=== PATIENT | female | born 1940 | race Caucasian/White ===

== ENCOUNTER 2019-10-23 16:00 | Outpatient (CLI) | payer MEDICARE, SELFPAY ==
[2019-10-23 16:35] LABS: Basophils % 1.1 %; Eosinophils # 0.2 10^3/uL (0.0-0.8); Hematocrit 39.7 % (37.0-47.0); Hemoglobin 12.4 g/dL (11.5-15.3); Lymphocytes # 1.2 10^3/uL (0.8-4.8); Lymphocytes % 30.5 %; Mean Corpuscular HGB Conc 31.2 g/dL (30.0-36.0); Mean Corpuscular Volume 92.8 fL (81-99); Mean Platelet Volume 12.4 fL (7.4-10.4); Monocytes # 0.4 10^3/uL (0.2-0.9); Monocytes % 10.3 %; Neutrophils # 1.98 10^3/uL (1.8-7.7); Neutrophils % 52.6 %; Nucleated Red Blood Cells % 0 %; Platelet Count 145 10^3/cmm (130-400); Red Blood Count 4.28 10^6/uL (4.1-5.3); Red Cell Distribution Width 14.2 % (12.1-15.1); White Blood Count 3.8 10^3/uL (4.0-10.0)
[2019-10-23 17:09] LABS: Alanine Aminotransferase 8 U/L (0-33); Alkaline Phosphatase 60 IU/L (35-105); Anion Gap 11.3 (5-19); Aspartate Amino Transferase 17 U/L (0-32); Blood Urea Nitrogen 28 mg/dL (8-23); Calcium 9.2 mg/dL (8.5-10.5); Carbon Dioxide 24 mmol/L (22-29); Chloride 108 mmol/L (98-107); Chol HDL Ratio 2.63 mg/dL (0.0-4.40); Cholesterol 197 mg/dL (0-200); Globulin 2.6 g/dL (1.3-4.6); Glucose 94 mg/dL (65-115); HDL Cholesterol 75 mg/dL (60-100); LDL Cholesterol Calculated 107 mg/dL (50-129); LDL HDL Ratio 1.43 RATIO (0.00-3.22); Osmolality Calculated 285 mOsm/kg (285-295); Potassium 4.3 mmol/L (3.5-5.1); Sodium 139 mmol/L (136-145); Thyroid Stimulating Hormone 3.45 uIU/mL (0.27-4.20); Total Bilirubin 0.3 mg/dL (0.15-1.2); Total Protein 6.6 g/dL (6.6-8.7); Triglycerides 74 mg/dL (0-150)
[2019-10-23 19:08] LABS: Estmated Average Glucose 111; Hemoglobin A1C 5.5 % (4.0-6.0)
== END 2019-10-23 16:01 | disposition home or self-care (01) ==
LOC: LAB 16:17
PROVIDERS: Visit Provider Nurse Practitioner Family
DX: D64.9 Anemia, unspecified (principal); I10 Essential (primary) hypertension; E78.00 Pure hypercholesterolemia, unspecified
CPT/HCPCS: 80053; 80061; 83036; 84443; 85025

== ENCOUNTER 2021-09-13 10:51 | Emergency (ER) | payer MEDICARE, SELFPAY ==
[2021-09-13 11:02] VITALS: BP 132/71; PULSE 85; RESP 14; TEMP 36.2; O2SAT 96; BMI 23.1
--- NOTE | 2021-09-13 11:13 | W.ED.GENADLT ---
HPI - General Adult General: Chief complaint: GI Bleed Stated complaint: RECTAL BLEEDING Time Seen by Provider: 09/13/21 11:00 History of Present Illness: Patient is an 80-year-old female with history of CAD, hypertension, Alzheimer's dementia presenting to the emergency room with concerns of rectal bleeding generalized weakness x 4 day. Per patient's family, patient has had 1 episode of large blood. Per family, the patient has been increasingly more fatigued and last 4 days has had multiple episodes of emesis at home. Family denies any anticoagulation. EMS was called and patient was brought to the emergency room. In route, patient has normal blood pressure. Patient at baseline is AAO x1 but able to answer most questions. Denies nausea/vomiting, abdominal pain, fever/chill, chest pain, shortness of breath, dysuria/hematuria/polyuria, diarrhea/melena/hematochezia. Onset:4 days ago Duration:4 days Location:home Severity:moderate Associated symptoms: Reports nausea and vomiting; Deny chest pain, dyspnea, rash or palpitations Review of Systems Const: Reports: other (+generalized weakness); Denies: fever(s) or chills Eyes: Denies: change in vision ENMT: Denies: mouth pain Card: Denies: chest pain or palpitations Resp: Denies: dyspnea or non-productive cough GI: Reports: nausea, vomiting and other (+bloody stools); Denies: abdominal pain or diarrhea : Denies: dysuria Musc: Denies: extremity pain Skin/Breast: Denies: rash or new lesions Neuro: Denies: weakness in extremities Psych: Reports: other (Normal mood) Nish/Lymph: Denies: easy bruising PFSH ED PFSH: Medical History CAD (coronary artery disease) Essential hypertension Left ventricular hypertrophy Family History Other CAD (coronary artery disease) Cancer Dementia Hypertension Stroke Social History Smoking and tobacco status: never smoked Physical Exam Const: COMMON NORMALS: alert HENMT: COMMON NORMALS: atraumatic HEAD & SCALP: atraumatic MOUTH: moist mucous membranes not abnormal Eye: COMMON NORMALS: EOMs intact bilaterally and conjunctivae normal CONJUNCTIVA: Yes conjunctivae normal Neck/C-Spine: COMMON NORMALS: full ROM and supple Resp: COMMON NORMALS: normal respiratory effort and clear to auscultation bilaterally AUSCULTATION: clear to auscultation bilaterally Cardio: COMMON NORMALS: regular rate RATE: regular rate GI: COMMON NORMALS: Soft to palpation PALPATION: Yes Soft to palpation OTHER: +moderate LLQ TTP. NO guarding rebound, guarding, rigidity. No CVA tenderness to percussion. Neg Manuel/Neg McBurney's point tenderness, no suprabupic tenderness to palpation. + Rectal exam supervised by Carmen nurse tech: Bright red blood per rectum, nonthrombosed external hemorrhoid noted at the 12 o'clock position, no visible signs of anal fissure Extremity: COMMON NORMALS: full ROM Neuro: SENSORIUM/ORIENTATION: Yes alert MOTOR EXAM: No Abnormal motor strength present and Other motor observations present (no focal motor deficits) Psych: COMMON NORMALS: speech normal SPEECH: Yes normal speech MOOD & AFFECT: Yes euthymic mood Course Vital Signs: Vital signs: Vital Signs Temperature 97.1 F L 09/13/21 11:02 Pulse Rate 84 09/13/21 16:47 Respiratory Rate 14 09/13/21 11:02 Blood Pressure 153/76 09/13/21 16:47 Pulse Oximetry 97 09/13/21 16:47 [facility] - General Adult Medical Decision Making 80-year-old female with history of CAD, hypertension presenting to the emergency room with concern generalized weakness x 4 days and rectal bleeding x 1 episode. At baseline patient is AAO x1 able to answer most of my questions. Patient has focal LLQ tenderness palpation without guarding rebound tenderness. Hemodynamically stable. Patient is noted to have white count 11.8. Hemoglobin of 15.6. Patient noted to have new SORAYA on CKD with creatinine of 3.4. BUN of 52 which may indicate GI bleeding. To schedule small bowel obstruction. Patient is noted to have bulky fibroid uterus. Given age, I discussed with Dr. Ellison who thinks that this is likely gynecological cancer. At the present time, we suspect that patient may have adhesions or cancer causing small bowel obstruction. Dr. Ellison recommended transfer to an outside hospital where there is naphthalene operator helper onc covergae. Case was discussed with Dr. Martins who agreed with the transfer to [facility] for management of SBO in the setting possible uterine cancer. Disposition: Transfer to outside hospital Lab Data : 09/13/21 12:08 09/13/21 12:08 Radiology Impressions Abdomen/Pelvis CT 09/13/21 12:49 IMPRESSION: 1. Evidence of small bowel obstruction with fluid distended small bowel loops and air-fluid levels. Evidence of transition to normal caliber small bowel loops in the RIGHT lower quadrant with some tethering in this area suspicious for adhesions. No pneumatosis or free air. 2. Terminal ileum and colon are decompressed. 3. Bulky fibroid uterus with Calcified uterine fibroids the largest measuring 4.6 x 3.9 CM. 4. Small moderate RIGHT and tiny LEFT pleural effusions. Notified Sarita Fall MD at 09/13/2021 2:04 PM. KUB X-Ray 09/13/21 14:03 IMPRESSION: Nasogastric tube placement as above. Distal small bowel obstruction. Laboratory Results WBC 11.8 10^3/uL (4.0-10.0) H 09/13/21 12:08 RBC 5.31 10^6/uL (4.1-5.3) H 09/13/21 12:08 Hgb 15.6 g/dL (11.5-15.3) H 09/13/21 12:08 Hct 44.6 % (37.0-47.0) 09/13/21 12:08 MCV 84.0 fl (81-99) 09/13/21 12:08 MCH 29.4 pg (28.0-34.0) 09/13/21 12:08 MCHC 35.0 g/dL (30.0-36.0) 09/13/21 12:08 RDW 14.1 % (12.1-15.1) 09/13/21 12:08 Plt Count 123 10^3/cmm (130-400) L 09/13/21 12:08 MPV 12.2 fL (7.4-10.4) H 09/13/21 12:08 Neut % (Auto) 84.7 % 09/13/21 12:08 Lymph % (Auto) 8.3 % 09/13/21 12:08 [place] % (Auto) 6.2 % 09/13/21 12:08 Eos % (Auto) 0.0 % 09/13/21 12:08 Baso % (Auto) 0.3 % 09/13/21 12:08 Neut # (Auto) 10.00 10^3/uL (1.8-7.7) H 09/13/21 12:08 Lymph # (Auto) 1.0 10^3/uL (0.8-4.8) 09/13/21 12:08 [place] # (Auto) 0.7 10^3/uL (0.2-0.9) 09/13/21 12:08 Eos # (Auto) 0.0 10^3/uL (0.0-0.8) 09/13/21 12:08 Baso # (Auto) 0.0 10^3/uL (0.0-0.1) 09/13/21 12:08 Nucleated RBC % (auto) 0 % 09/13/21 12:08 Nucleated RBCs # 0.0 /100WBC 09/13/21 12:08 PT 14.80 SECONDS (12.1-14.9) 09/13/21 12:17 INR 1.13 (0.8-1.2) 09/13/21 12:17 APTT 25.5 SECONDS (23.9-36.7) 09/13/21 12:17 Sodium 135 mmol/L (136-145) L 09/13/21 12:08 Potassium 4.2 mmol/L (3.5-5.1) 09/13/21 12:08 Chloride 101 mmol/L (98-107) 09/13/21 12:08 Carbon Dioxide 18 mmol/L (22-29) L 09/13/21 12:08 Anion Gap 20.2 (5-19) H 09/13/21 12:08 BUN 52 mg/dL (8-23) H 09/13/21 12:08 Creatinine 3.4 mg/dL (0.5-0.9) H 09/13/21 12:08 GFR Calculation Not Reportable 09/13/21 12:08 Glucose 99 mg/dL (65-115) 09/13/21 12:08 Calculated Osmolality 294 mOsm/kg (285-295) 09/13/21 12:08 Calcium 9.2 mg/dL (8.5-10.5) 09/13/21 12:08 Total Bilirubin 0.6 mg/dL (0.15-1.2) 09/13/21 12:08 AST 22 U/L (0-32) 09/13/21 12:08 ALT < 5 U/L (0-33) 09/13/21 12:08 Alkaline Phosphatase 49 IU/L (35-105) 09/13/21 12:08 Total Protein 6.2 g/dL (6.6-8.7) L 09/13/21 12:08 Albumin 3.1 g/dL (3.5-5.2) L 09/13/21 12:08 Globulin 3.1 g/dL (1.3-4.6) 09/13/21 12:08 Lipase 9 U/L (13-60) L 09/13/21 12:08 Imaging Data Other Imaging: Radiologist's impression: [facility] [address] [address] Scan Report Signed Patient: Alexsandra Juarez Unit #: [id number] : 1940 Age/Sex: 80 / F ADM Date: 09/13/21 Loc: ER Room/Bed: Attending Dr: Ordering Provider/Ordering MD: Sarita Fall MD Date of Service: 09/13/21 Procedure(s): CT abdomen pelvis con [id number] Accession Number(s): [id number] Report Number: [id number] WS: [id number] CT ABDOMEN PELVIS TECHNIQUE: Noncontrast CT of the abdomen and pelvis with coronal and sagittal reformatted images. CLINICAL INFORMATION: LLQ abd pain COMPARISON: None. DLP: 1060.[address] [facility] at [facility] one of these dose optimization techniques: automated exposure control; mA and/or kV adjustment per patient size (includes targeted exams where dose is matched to clinical indication); or iterative reconstruction. FINDINGS: Small moderate RIGHT and tiny LEFT pleural effusions. Compressive atelectasis in the lung bases. Tiny pericardial effusion. Coronary calcification. Bulky fibroid uterus with Calcified uterine fibroids the largest measuring 4.6 x 3.9 CM. Rectal constipation with rectal distention. Colon is decompressed. Evidence of small bowel obstruction with fluid distended loops of small bowel with air-fluid levels. Small bowel loops measure up to 3.0 CM. Fluid distended stomach with air-fluid level. Suggestion of transition point in the RIGHT lower pelvis with some induration in the mesentery suspicious for adhesions in this area. No free air or pneumatosis. Terminal ileum is decompressed. Noncontrast liver is normal. Noncontrast spleen is normal. Mild fluid distention of the gallbladder. Fatty atrophy of the pancreas. Splenic artery calcification. Adrenal glands are normal. No hydronephrosis. Bilateral renal cortical atrophy. LEFT renal cyst. CT/CT abdomen pelvis wo con [id number] IMPRESSION: ? 1.? Evidence of small bowel obstruction with fluid distended small bowel loops and air-fluid levels. Evidence of transition to normal caliber small bowel loops in the RIGHT lower quadrant with some tethering in this area suspicious for adhesions. No pneumatosis or free air. 2.? Terminal ileum and colon are decompressed. 3.? Bulky fibroid uterus with Calcified uterine fibroids the largest measuring 4.6 x 3.9 CM. 4.? Small moderate RIGHT and tiny LEFT pleural effusions. ? Notified Sarita Fall MD at 09/13/2021 2:04 PM. ? ? Dictated By: Cecil Damico MD Signed By: Cecil Damico MD Signed Date/Time: 09/13/21 1407 DD/ 1344 Discharge Plan Discharge Patient Disposition: Admitted As Inpatient Clinical Impression: Rectal bleed, Generalized weakness, Acute kidney injury superimposed on chronic kidney disease, SBO (small bowel obstruction), Fibroid, uterine Condition: Stable Coding Level of Care Code ED Community Development Officer for Chg Fwd Exam Comprehensive
--- NOTE | 2021-09-13 11:29 | PC.PHAR ---
pt states her son takes care of her medications-pts son reilly states the pt takes the medications entered states he is unsure of the names of which ones she takes in the am and hs-states the pt had her am meds states he knows for sure the pt took the amlodipine and namenda this am-
[2021-09-13 12:18] LABS: Basophils % 0.3 %; Hematocrit 44.6 % (37.0-47.0); Hemoglobin 15.6 g/dL (11.5-15.3); Lymphocytes % 8.3 %; Mean Corpuscular Hemoglobin 29.4 pg (28.0-34.0); Mean Platelet Volume 12.2 fL (7.4-10.4); Monocytes # 0.7 10^3/uL (0.2-0.9); Monocytes % 6.2 %; Neutrophils % 84.7 %; Nucleated Red Blood Cells % 0 %; Platelet Count 123 10^3/cmm (130-400); Red Blood Count 5.31 10^6/uL (4.1-5.3); Red Cell Distribution Width 14.1 % (12.1-15.1); White Blood Count 11.8 10^3/uL (4.0-10.0)
[2021-09-13 12:32] LABS: Alanine Aminotransferase < 5 U/L (0-33); Albumin Level 3.1 g/dL (3.5-5.2); Alkaline Phosphatase 49 IU/L (35-105); Blood Urea Nitrogen 52 mg/dL (8-23); Calcium 9.2 mg/dL (8.5-10.5); Carbon Dioxide 18 mmol/L (22-29); Chloride 101 mmol/L (98-107); Globulin 3.1 g/dL (1.3-4.6); Glucose 99 mg/dL (65-115); Lipase 9 U/L (13-60); Osmolality Calculated 294 mOsm/kg (285-295); Sodium 135 mmol/L (136-145); Total Bilirubin 0.6 mg/dL (0.15-1.2); Total Protein 6.2 g/dL (6.6-8.7)
[2021-09-13 12:37] LABS: Anion Gap 20.2 (5-19); Aspartate Amino Transferase 22 U/L (0-32); Potassium 4.2 mmol/L (3.5-5.1)
[2021-09-13 12:37] LABS: INR 1.13 (0.8-1.2); Partial Thromboplastin Time 25.5 SECONDS (23.9-36.7)
--- NOTE | 2021-09-13 12:49 | CT_ITS ---
WS: [id number] CT ABDOMEN PELVIS TECHNIQUE: Noncontrast CT of the abdomen and pelvis with coronal and sagittal reformatted images. CLINICAL INFORMATION: LLQ abd pain COMPARISON: None. DLP: 1060.[address] scans at [facility] use at least one of these dose optimization techniques: automated e xposure control; mA and/or kV adjustment per patient size (includes targeted exams where dose is matc hed to clinical indication); or iterative reconstruction. FINDINGS: Small moderate RIGHT and tiny LEFT pleural effusions. Compressive atelectasis in the lung bases. Tiny pericardial effusion. Coronary calcification. Bulky fibroid uterus with Calcified uterine fibroids t he largest measuring 4.6 x 3.9 CM. Rectal constipation with rectal distention. Colon is decompressed. Evidence of small bowel obstruction with fluid distended loops of small bowel with air-fluid levels. Small bowel loops measure up to 3.0 CM. Fluid distended stomach with air-fluid level. Suggestion of transition point in the RIGHT lower pelvis with some induration in the mesentery suspicious for adhes ions in this area. No free air or pneumatosis. Terminal ileum is decompressed. Noncontrast liver is normal. Noncontrast spleen is normal. Mild fluid distention of the gallbladder. Fatty atrophy of the pancreas. Splenic artery calcification. Adrenal glands are normal. No hydronephr osis. Bilateral renal cortical atrophy. LEFT renal cyst. CT/CT abdomen pelvis wo con [id number] IMPRESSION: 1. Evidence of small bowel obstruction with fluid distended small bowel loops and air-fluid levels. Evidence of transition to normal caliber small bowel loop s in the RIGHT lower quadrant with some tethering in this area suspicious for a dhesions. No pneumatosis or free air. 2. Terminal ileum and colon are decompressed. 3. Bulky fibroid uterus with Calcified uterine fibroids the largest measuring 4.6 x 3.9 CM. 4. Small moderate RIGHT and tiny LEFT pleural effusions. Notified Sarita Fall MD at 09/13/2021 2:04 PM.
--- NOTE | 2021-09-13 14:03 | XR_ITS ---
WS: [id number] XR KUB portable [id number] REASON FOR EXAM: ng tube placement FINDINGS: Nasogastric tube placement consistent with junction of the fundus and body of the stomach. Again are noted the multiple dilated small bowel loops consistent with distal small bowel obstruction as demonstrated on the previous CT scan of today. No free air or retroperitoneal air. Moderate to large right pleural effusion with right lower lung atelectasis. Smaller left pleural effu shayna. XR/XR KUB portable [id number] IMPRESSION: Nasogastric tube placement as above. Distal small bowel obstruction.
[2021-09-13 15:21] VITALS: BP 117/69; PULSE 82; O2SAT 99
[2021-09-13] MEDS: sodium chloride 0.9% 500 ML 999 ML IV (15:36)
[2021-09-13] MEDS: ondansetron 2 mg/ML SDV 2 mL 4 MG IVP (15:38)
[2021-09-13 16:47] VITALS: BP 153/76; PULSE 84; O2SAT 97
--- NOTE | 2021-09-13 20:16 | PC.NURSE ---
Patient pulled out her NG tube. Dr. Fall said not to place another one.
== END 2021-09-13 21:25 | disposition admitted as inpatient to this hospital (09) ==
PROVIDERS: Emergency Provider Emergency Medicine
DX: K62.5 Hemorrhage of anus and rectum (principal); R53.1 Weakness; I12.9 Hypertensive chronic kidney disease with stage 1 through stage 4 chronic kidney disease, or unspecified chronic kidney disease; N18.9 Chronic kidney disease, unspecified; N17.9 Acute kidney failure, unspecified; K56.609 Unspecified intestinal obstruction, unspecified as to partial versus complete obstruction; D25.9 Leiomyoma of uterus, unspecified; I25.10 Atherosclerotic heart disease of native coronary artery without angina pectoris
CPT/HCPCS: 36415; 74018; 74176; 80053; 83690; 85025; 85610; 85730; 96374; 99285; J2405; J7040

== ENCOUNTER → 2022-05-16 15:32 | Outpatient (BNVA) | payer MEDICARE, SELFPAY | PROVIDERS: Visit Provider Obstetrics & Gynecology | DX: D25.9 Leiomyoma of uterus, unspecified (principal) | CPT/HCPCS: 76830; 76856 ==

== ENCOUNTER → 2022-11-21 11:10 | Outpatient (BNVA) | payer MEDICARE, SELFPAY | PROVIDERS: Visit Provider Obstetrics & Gynecology | DX: D25.9 Leiomyoma of uterus, unspecified (principal) | CPT/HCPCS: 76856 ==

== ENCOUNTER 2023-03-26 12:30 | Emergency (ER) | payer MEDICARE, SELFPAY ==
[2023-03-26 12:32] VITALS: BP 174/82; PULSE 72; RESP 14; TEMP 36.7; O2SAT 97; BMI 23.1
[2023-03-26 12:54] VITALS: BP 158/72; PULSE 64; RESP 14; TEMP 36.5; O2SAT 95
--- NOTE | 2023-03-26 12:55 | ED_ITS ---
HPI - Fall 2 General: Chief Complaint: Fall Stated Complaint: Fever,/ Fall Time Seen by Provider: 03/26/23 12:55 History of Present Illness: 82-year-old female presents to the emerg ency department via POV accompanied by her son. Patient is a poor historian as she has a history of dementia. The son states the patient fell twice today once while going to the bathroom and then the second time she fell she hit the left side of her forehead on a stationary object. There is no report of loss of consciousness, patient states that she does feel dizzy. As reported by the patient's son she has no history of falling previously. She does have a hematoma to the left supraorbital region. She does not appear to take anticoagulation. Associated symptoms-after fall: Denies chest pain, confusion or headache(s) Review of Systems 2 Card: Denies: chest pain, irregular heart rhythm or edema Skin/Breast: Reports: other (Bruise to left eyelid) Neuro: Reports: dizziness; Denies: headache(s), confusion, difficulty communicating thoughts or seizure- like activity PFSH ED 2 PFSH: Medical History CAD (coronary artery disease) Essential hypertension Left ventricular hypertrophy Family History Unknown Cancer Denies a family hx of Breast, Ovarian, Uterine, Colon Thyroid and Pancreatic cancers. Other CAD (coronary artery disease) Dementia Hypertension Stroke Social History Smoking and tobacco/nicotine status: never used tobacco/nicotine Physical Exam 2 Narrative: EXAM NARRATIVE: Constitutional: the patient appears well nourished and with normal development. Vital signs reviewed as documented. HENMT: Normocephalic, atraumatic. External ears normal appearance without drainage. Nose without drainage, normal appearance. Mucus membranes moist. Neck is supple, No jugular venous distension, trachea is midline, no appreciable carotid bruits. No lymphadenopathy. No meningeal signs. Flexion, extension and lateral rotation is without pain. No crepitus, no palpable step-offs, normal alignment, Eyes: Pupils are equal, round, reactive to light and accommodation. No scleral icterus. Extra-ocular movement are intact. Thorax is symmetrical and with equal rise and fall with respirations. Resp: Lungs are clear to auscultation. No wheezes, rales, crackles or ronchi at present. Cardio: Regular rate and rhythm. Positive S1, S2. No appreciable murmurs, rubs or gallops. GI: Abdominal exam reveals normal bowel sounds to all quadrants. No organomegaly. No obvious palpable masses noted. No hepatomegally appreciated. Soft, non-tender to palpation. Extremity: Extremities are non-edematous and both femoral and pedal pulses are 2+ and equal bilaterally. Moves all extremities well, sensation in all extremities. Neuro: Alert and oriented x4, person, place, time and situation. Cranial nerves II through XII are grossly intact, there is no focal neurological deficits that I can appreciate at present. Motor strength in the upper and lower extremities are equal and bilateral 5/5. Psych: Cooperative, calm, normal thought process, appropriate judgment. Skin: No lesions, rashes. Bruising to the left eyebrow area. Back: Symmetrical, no obvious deformity, No CVA tenderness, normal alignment, no palpable step-offs, no crepitus, no obvious deformity. Course 2 Vital Signs: Vital signs: Vital Signs Temperature 97.7 F 03/26/23 14:48 Pulse Rate 64 03/26/23 14:48 Respiratory Rate 14 03/26/23 14:48 Blood Pressure 158/72 03/26/23 14:48 Pulse Oximetry 95 03/26/23 14:48 Oxygen Delivery Me thod Room Air 03/26/23 12:54 MDM - Fall Medical Decision Making 82-year-old female with a history of dementia with accidental falls x 2 today we will obtain laboratory evaluation to include a CBC, CMP PT/INR PTT EKG cardiac enzymes as well as a CT scan of her head and cervical spine given her age and mechanism of the fall as well as the impact with the stationary object and resultant dizziness. We will obtain a urinalysis and orthostatic blood pressure evaluation to evaluate for dehydration. Medical Records I reviewed the patient's medical records. Lab Data I reviewed the patient's lab results. 03/26/23 13:15 03/26/23 13:15 Radiology Impressions Cervical Spine CT 03/26/23 12:59 IMPRESSION: No acute findings. Head CT 03/26/23 12:59 IMPRESSION: No acute intracranial abnormality. Laboratory Results WBC 5.66 10^3/uL (3.29-11.43) 03/26/23 13:15 RBC 4.78 10^6/uL (3.85-5.65) 03/26/23 13:15 Hgb 14.10 g/dL (11.27-16.99) 03/26/23 13:15 Hct 43.6 % (36-47) 03/26/23 13:15 MCV 91.2 fl (85-98) 03/26/23 13:15 MCH 29.5 pg (27-33) 03/26/23 13:15 MCHC 32.3 g/dL (30-55) 03/26/23 13:15 RDW 14.2 % (12.1-15.1) 03/26/23 13:15 Plt Count 148 10^3/cmm (157-399) L 03/26/23 13:15 MPV 11.9 fL (7.4-10.4) H 03/26/23 13:15 Neut % (Auto) 68.9 % 03/26/23 13:15 Lymph % (Auto) 20.7 % 03/26/23 13:15 [place] % (Auto) 6.9 % 03/26/23 13:15 Eos % (Auto) 2.1 % 03/26/23 13:15 Baso % (Auto) 0.9 % 03/26/23 13:15 Neut # (Auto) 3.90 10^3/uL (1.8-7.7) 03/26/23 13:15 Lymph # (Auto) 1.2 10^3/uL (0.8-4.8) 03/26/23 13:15 [place] # (Auto) 0.4 10^3/uL (0.2-0.9) 03/26/23 13:15 Eos # (Auto) 0.1 10^3/uL (0.0-0.8) 03/26/23 13:15 Baso # (Auto) 0.1 10^3/uL (0.0-0.1) 03/26/23 13:15 Nucleated RBC % (auto) 0 % 03/26/23 13:15 Nucleated RBCs # 0.0 /100WBC 03/26/23 13:15 Sodium 139 mmol/L (136-145) 03/26/23 13:15 Potassium 4.6 mmol/L (3.5-5.1) 03/26/23 13:15 Chloride 106 mmol/L (98-107) 03/26/23 13:15 Carbon Dioxide 24 mmol/L (22-29) 03/26/23 13:15 Anion Gap 13.6 (5-19) 03/26/23 13:15 BUN 30 mg/dL (8-23) H 03/26/23 13:15 Creatinine 1.4 mg/dL (0.5-0.9) H 03/26/23 13:15 GFR Calculation Not Reportable 03/26/23 13:15 Glucose 96 mg/dL (65-115) 03/26/23 13:15 POC Glucose 79 mg/dL (70-110) 03/26/23 13:38 Calculated Osmolality 294 mOsm/kg (285-295) 03/26/23 13:15 Calcium 10.3 mg/dL (8.5-10.5) 03/26/23 13:15 Total Bilirubin 0.4 mg/dL (0.15-1.2) 03/26/23 13:15 AST 20 U/L (0-32) 03/26/23 13:15 ALT 7 U/L (0-33) 03/26/23 13:15 Alkaline Phosphatase 63 U/L (35-105) 03/26/23 13:15 Troponin T Baseline 16 ng/L (0-10) H 03/26/23 13:15 Total Protein 7.6 g/dL (6.6-8.7) 03/26/23 13:15 Albumin 4.3 g/dL (3.5-5.2) 03/26/23 13:15 Globulin 3.3 g/dL (1.3-4.6) 03/26/23 13:15 Urine Color Straw (Yellow) 03/26/23 13:28 Urine Appearance Clear (CLEAR) 03/26/23 13:28 Urine pH 7 (5-7) 03/26/23 13:28 Ur Specific [place] 1.010 (1.005-1.030) 03/26/23 13:28 Urine Protein Neg (Negative) 03/26/23 13:28 Urine Glucose (UA) Norm (Normal) 03/26/23 13:28 Urine Ketones Negative (Negative) 03/26/23 13:28 Urine Blood Neg (Negative) 03/26/23 13:28 Urine Nitrate Negative (Negative) 03/26/23 13:28 Urine Bilirubin Neg (Negative) 03/26/23 13:28 Urine Urobilinogen Norm mg/dL (Negative) 03/26/23 13:28 Ur Leukocyte Esterase Negative (Negative) 03/26/23 13:28 All radiology interpretation(s) finalized by discharge EKG Data EKG 1: Interpretation: Twelve-lead EKG obtained at 1317 reviewed at 1320 demonstrates sinus rhythm, ventricular rate of 64 bpm, WV interval 176, QRS duration 88, QT 424, QTc [address] elevation or depression at present to demonstrate acute ischemia or infarction. Discharge Plan Discharge Patient Disposition: Home Clinical Impression: Accidental fall, Contusion of face, Dementia Condition: Stable Prescriptions: No Action memantine [Namenda] 10 mg tablet 10 mg PO BID isosorbide mononitrate 60 mg tablet extended release 24 hr 60 mg PO DAILY lovastatin 20 mg tablet 20 mg PO DAILY donepezil 10 mg tablet 10 mg PO DAILY tolterodine 4 mg capsule,extended release 24hr 4 mg PO DAILY olmesartan 20 mg tablet 20 mg PO DAILY aspirin [Adult Low Dose Aspirin] 81 mg tablet,delayed release (DR/EC) 81 mg PO BEDTIME cholecalciferol (vitamin D3) 125 mcg (5,000 unit) capsule 125 mcg PO BEDTIME amlodipine 5 mg tablet 5 mg PO DAILY mirtazapine 7.5 mg Tablet 7.5 mg PO BEDTIME Discharge Orders: Discharge ED (Routine); Ordered 03/26/23 Ordered By: Domenic Perez Referrals: Mile Gaxiola FNP [Primary Care Provider] - Discharge Diet: Advance as tolerated Discharge Activity: Resume usual activity Patient Instructions: Opioid Safety, Pain Management Activity Restrictions/Additional Instructions: Activity Restrictions/Additional Instructions: Thank you for choosing [facility] for your healthcare needs today. Please realize that you were seen in the Emergency Department and that we are providing you with an emergency medical screening exam and this may not be a complete and all inclusive of all the testing and or medical work-up that you may need to determine your ailment or severity of your illness. It is very important that you follow-up as instructed with your Primary care provider or Specialist for additional evaluation and to discuss your medical treatment plan. You may return to the Emergency Department should you have concerns or if your condition changes or worsens in any way. Coding Level of Care Code ED Rigging Up Worker for Trina Conley
[2023-03-26 12:59] VITALS: BP 154/80; BP 157/82; BP 165/83; PULSE 65; PULSE 66; PULSE 72
--- NOTE | 2023-03-26 12:59 | CTR_ITS ---
PROCEDURE INFORMATION: Exam: CT Head Without Contrast Exam date and time: 03/26/2023 1:57 PM Age: 82 years old Clinical indication: Injury or trauma; Fall; Blunt trauma (contusions or hematomas); Additional info: Fall/trauma TECHNIQUE: Imaging protocol: Computed tomography of the head without contrast. Radiation optimization: All CT scans at this facility use at least one of these dose optimization techniques: automated exposure control; mA and/or kV adjustment per patient size (includes targeted exams where dose is matched to clinical indication); or iterative reconstruction. COMPARISON: CT cervical spin wo con* [id number] 03/26/2023 1:57 PM RADIATION DOSE METRICS: Total DLP (mGy-cm): 981.4 FINDINGS: Brain: No hemorrhage. Chronic white matter and senescent changes. Cerebral ventricles: No ventriculomegaly. Paranasal sinuses: Visualized sinuses are grossly clear. Mastoid air cells: No mastoid effusion. Bones/joints: No acute findings. Hyperostosis frontalis. Soft tissues: No acute findings. CT/CT head wo con* [id number] IMPRESSION: No acute intracranial abnormality.
--- NOTE | 2023-03-26 12:59 | CTR_ITS ---
PROCEDURE INFORMATION: Exam: CT Cervical Spine Without Contrast Exam date and time: 03/26/2023 1:57 PM Age: 82 years old Clinical indication: Injury or trauma; Fall; Blunt trauma; Additional info: Trauma/fall TECHNIQUE: Imaging protocol: Computed tomography of the cervical spine without contrast. Radiation optimization: All CT scans at this facility use at least one of these dose optimization techniques: automated exposure control; mA and/or kV adjustment per patient size (includes targeted exams where dose is matched to clinical indication); or iterative reconstruction. COMPARISON: CT head wo con* [id number] 03/26/2023 1:57 PM RADIATION DOSE METRICS: Total DLP (mGy-cm): 591.2 FINDINGS: Bones/joints: No fracture or malalignment. Mild multilevel degenerative changes. No severe canal stenosis. Soft tissues: No acute findings. CT/CT cervical spin wo con* [id number] IMPRESSION: No acute findings.
--- NOTE | 2023-03-26 13:17 | ECG_ITS ---
[facility] Test Date: 2023-03-26 Pat Name: Alexsandra Juarez Department: Room: Gender: Female Rn Hematology: : 1940 Requested By: Domenic Perez Order Number: [id number] Gregory MD: Laury Puckett M.D. Measurements Intervals [place] Rate: 64 P: 110 UT: 176 QRS: 121 QRSD: 88 T: 123 QT: 424 QTc: 439 Interpretive Statements SINUS RHYTHM ARM LEADS REVERSED [INVERTED P AND QRS IN I] No previous ECG available for comparison Electronically Signed On 03-26-2023 21:36:46 SENIOR SUPPORT ANALYST by Laury Puckett M.D. [id number]
[2023-03-26 13:28] LABS: Basophils # 0.1 10^3/uL (0.0-0.1); Basophils % 0.9 %; Eosinophils # 0.1 10^3/uL (0.0-0.8); Eosinophils % 2.1 %; Hematocrit 43.6 % (36-47); Lymphocytes # 1.2 10^3/uL (0.8-4.8); Lymphocytes % 20.7 %; Mean Corpuscular HGB Conc 32.3 g/dL (30-55); Mean Corpuscular Hemoglobin 29.5 pg (27-33); Mean Corpuscular Volume 91.2 fl (85-98); Mean Platelet Volume 11.9 fL (7.4-10.4); Monocytes # 0.4 10^3/uL (0.2-0.9); Monocytes % 6.9 %; Neutrophils % 68.9 %; Nucleated Red Blood Cells % 0 %; Platelet Count 148 10^3/cmm (157-399); Red Blood Count 4.78 10^6/uL (3.85-5.65); Red Cell Distribution Width 14.2 % (12.1-15.1); White Blood Count 5.66 10^3/uL (3.29-11.43)
[2023-03-26 13:38] LABS: Add Urine Microscopic? NO; Charge for UA Resulting for Rev
[2023-03-26 13:40] LABS: Troponin(5th) Baseline 16 ng/L (0-10)
[2023-03-26 13:42] LABS: Glucose Point of Care 79 mg/dL (70-110)
[2023-03-26 13:43] LABS: Alanine Aminotransferase 7 U/L (0-33); Albumin Level 4.3 g/dL (3.5-5.2); Alkaline Phosphatase 63 U/L (35-105); Anion Gap 13.6 (5-19); Aspartate Amino Transferase 20 U/L (0-32); Blood Urea Nitrogen 30 mg/dL (8-23); Calcium 10.3 mg/dL (8.5-10.5); Carbon Dioxide 24 mmol/L (22-29); Chloride 106 mmol/L (98-107); Globulin 3.3 g/dL (1.3-4.6); Glucose 96 mg/dL (65-115); Osmolality Calculated 294 mOsm/kg (285-295); Potassium 4.6 mmol/L (3.5-5.1); Sodium 139 mmol/L (136-145); Total Bilirubin 0.4 mg/dL (0.15-1.2); Total Protein 7.6 g/dL (6.6-8.7)
[2023-03-26 13:43] LABS: Bilirubin Urine Neg (Negative); Blood Urine Neg (Negative); Glucose Urine UA Norm (Normal); Ketones Urine Negative (Negative); Leukocyte Esterase Urine Negative (Negative); Nitrate Urine Negative (Negative); Protein Urine Neg (Negative); Urine Appearance Clear (CLEAR); Urine Color Straw (Yellow); Urobilinogen Urine Norm (Negative); pH Urine 7 (5-7)
--- NOTE | 2023-03-26 13:52 | PC.PHAR ---
[facility] ([facility]) STATES PT TAKES MIRTAZAPINE AT BEDTIME BUT CAN'T VERIFY STRENGTH. LAST FILL WAS 09/13/2021. PT USES [facility] WHICH IS CLOSED TODAY-MONDAY. 03/26/23
[2023-03-26 14:48] VITALS: BP 158/72; PULSE 64; RESP 14; TEMP 36.5; O2SAT 95
== END 2023-03-26 14:48 | disposition home or self-care (01) ==
PROVIDERS: Emergency Provider Internal Medicine; PCP Nurse Practitioner Family
DX: S00.83XA Contusion of other part of head, initial encounter (principal); F03.90 Unspecified dementia, unspecified severity, without behavioral disturbance, psychotic disturbance, mood disturbance, and anxiety; Z79.82 Long term (current) use of aspirin; I25.10 Atherosclerotic heart disease of native coronary artery without angina pectoris; I10 Essential (primary) hypertension; W18.39XA Other fall on same level, initial encounter
CPT/HCPCS: 36416; 70450; 72125; 80053; 81003; 82962; 84484; 85025; 93005; 99285

== ENCOUNTER → 2023-05-29 11:09 | Outpatient (BNVA) | payer MEDICARE, SELFPAY | PROVIDERS: PCP Nurse Practitioner Family; Visit Provider Obstetrics & Gynecology | DX: D25.9 Leiomyoma of uterus, unspecified (principal) | CPT/HCPCS: 76856 ==